=== PATIENT | male | born 1955 | race American Indian/Alaskan Native ===

== ENCOUNTER 2019-11-24 14:45 | Emergency (ER) | payer SELFPAY ==
--- NOTE | 2019-11-24 16:29 | Emergency Department Report ---
Chief Complaint: Upper Respiratory Infection Stated Complaint: CHEST TIGHTNESS, HEADACHCE Time Seen by Provider: 11/24/19 16:26 - HPI History of Present Illness: 64 y.o. M. that presents to the ER with chills, cough, and chest discomfort for 1 week. Reports night sweats and productive cough. Nonsmoker Taking meds with no change in symptoms. Denies recent travel, n/v/d, weakness, palpitations. MSE screening note: Focused history and physical exam performed. Due to findings the following was ordered: CXR ED Disposition for MSE Condition: Stable
--- NOTE | 2019-11-24 17:06 | XRay Report ---
CHEST 2 VIEWS INDICATION: coug and chest discomfort. COMPARISON: Chest x-ray from 01/28/2014 FINDINGS: Support devices: None. Heart: Within normal limits. Lungs/pleura: No acute air space or interstitial disease. No pneumothorax. Additional findings: None. IMPRESSION: 1. No acute findings. Signer Name: Olaf Muniz MD Signed: 11/24/2019 5:02 PM Workstation Name: [id number]
--- NOTE | 2019-11-24 19:14 | Emergency Department Report ---
HPI - General Chief Complaint: Upper Respiratory Infection Time Seen by Provider: 11/24/19 16:26 - HPI HPI: Room 43 The patient is a 64-year-old male present with a chief complaint of cough and congestion. The patient states for 1 week he has had a cough occasionally productive of white sputum, had a headache and fatigue. Patient is occasional rhinorrhea. Patient states he had a fever 102 F. Patient has no known sick contacts. ED Past Medical Hx - Past Medical History Previous Medical History?: Yes Hx Hypertension: Yes (not requiring meds at this time, used to take lisinopril) Hx Diabetes: Yes Additional medical history: gastric ulcer , no trouble since , no trouble with NSAIDs - Surgical History Past Surgical History?: Yes Additional Surgical History: 1/3 of stomach removed in - Family History Family history: no significant - Social History Smoking Status: Never Smoker Substance Use Type: None (Denies illicit drug use) - Medications Home Medications: Home Medications Medication Instructions Recorded Confirmed Last Taken Type HYDROcodone/APAP 5-325 [[place] 1 each PO Q6HR PRN #20 tablet 03/02/15 Unknown Rx 5/325] Ibuprofen [Motrin] 600 mg PO Q8H PRN #50 tablet 03/02/15 Unknown Rx metFORMIN [Glucophage] 500 mg PO BID 03/02/15 03/02/15 Unknown History Albuterol INH(or & Nicu Only) 2 puff IH QID PRN #8.5 gram 11/24/19 Unknown Rx [ProAir HFA Inhaler] Benzonatate [Tessalon Perles] 100 mg PO Q8HR #30 capsule 11/24/19 Unknown Rx Ciprofloxacin HCl [Ciprofloxacin 500 mg PO Q12HR #20 tab 11/24/19 Unknown Rx TAB] HYDROcodone/APAP 5-325 [[place] 1 - 2 each PO Q6HR PRN #7 tablet 11/24/19 Unknown Rx 5/325] Ibuprofen [Motrin 800 MG tab] 800 mg PO Q8HR PRN #20 tablet 11/24/19 Unknown Rx Oxymetazoline 0.05% [Vicks Sinex] 1 spray NS Q12H PRN #1 bottle 11/24/19 Unknown Rx ED Review of Systems ROS: Stated complaint: CHEST TIGHTNESS, HEADACHCE Other details as noted in HPI Constitutional: fever Eyes: denies: eye pain ENT: congestion Respiratory: cough Endocrine: no symptoms reported Gastrointestinal: denies: abdominal pain Musculoskeletal: myalgia Neurological: headache Physical Exam - Physical Exam Vital Signs: Vital Signs 11/24/19 16:26 Temperature 97.4 F L Pulse Rate 79 Respiratory 18 Rate Blood Pressure 125/90 O2 Sat by Pulse 96 Oximetry Physical Exam: GENERAL: The patient is well-developed well-nourished []. [] HEENT: Normocephalic. Atraumatic. Extraocular motions are intact. Patient has moist mucous membranes. NECK: Supple. Trachea midline CHEST/LUNGS: Clear to auscultation. There is no respiratory distress noted. HEART/CARDIOVASCULAR: Regular. There is no tachycardia. There is no gallop rub or murmur. ABDOMEN: Abdomen is soft, nontender. Patient has normal bowel sounds. There is no abdominal distention. SKIN: There is no rash. There is no edema. There is no diaphoresis. NEURO: The patient is awake, alert, and oriented. The patient is cooperative. The patient has no focal neurologic deficits. The patient has normal speech MUSCULOSKELETAL: There is no evidence of acute injury. ED Course Vital Signs 11/24/19 16:26 Temperature 97.4 F L Pulse Rate 79 Respiratory 18 Rate Blood Pressure 125/90 O2 Sat by Pulse 96 Oximetry ED Medical Decision Making - Lab Data Laboratory Tests 11/24/19 Unknown Influenza A (Rapid) Negative Influenza B (Rapid) Negative - Radiology Data Radiology results: report reviewed (Chest x-ray), image reviewed (Chest x-ray) interpreted by me: Chest x-ray-no focal infiltrates, no pneumothorax [facility] [address] [place] [address] XRay Report Signed Patient: ОЛЕГ HARRIS MR#: [id number] : [birth year] Acct:[id number] Age/Sex: 64 / M ADM Date: 11/24/19 Loc: ED Attending Dr: Ordering Physician: IRA NELSON Date of Service: 11/24/19 Procedure(s): XR chest routine 2V Accession Number(s): [id number] cc: IRA NELSON Fluoro Time In Minutes: CHEST 2 VIEWS INDICATION: coug and chest discomfort. COMPARISON: Chest x-ray from 01/28/2014 FINDINGS: Support devices: None. Heart: Within normal limits. Lungs/pleura: No acute air space or interstitial disease. No pneumothorax. Additional findings: None. IMPRESSION: 1. No acute findings. Signer Name: Olaf Muniz MD Signed: 11/24/2019 5:02 PM Workstation Name: [id number] Transcribed By: EMILY Dictated By: Olaf Muniz MD Electronically Authenticated By: Olaf Muniz MD Signed Date/Time: 11/24/191701 DD/ 99 TD/TT: - Differential Diagnosis Influenza, bronchitis, pneumonia Critical care attestation.: If time is entered above; I have spent that time in minutes in the direct care of this critically ill patient, excluding procedure time. ED Disposition Clinical Impression: Acute bronchitis Disposition: - TO HOME OR SELFCARE Is pt being admited?: No Does the pt Need Aspirin: No Condition: Stable Instructions: Acute Bronchitis (ED) Prescriptions: Ciprofloxacin HCl [Ciprofloxacin TAB] 500 mg PO Q12HR #20 tab Ibuprofen [Motrin 800 MG tab] 800 mg PO Q8HR PRN #20 tablet PRN Reason: Pain, Moderate (4-6) HYDROcodone/APAP 5-325 [[place] 5/325] 1 - 2 each PO Q6HR PRN #7 tablet PRN Reason: Pain Albuterol INH(or & Nicu Only) [ProAir HFA Inhaler] 2 puff IH QID PRN #8.5 gram PRN Reason: Shortness Of Breath Benzonatate [Tessalon Perles] 100 mg PO Q8HR #30 capsule Oxymetazoline 0.05% [Vicks Sinex] 1 spray NS Q12H PRN #1 bottle PRN Reason: Nasal Congestion Referrals: PRIMARY CARE, [Primary Care Provider] - 3-5 Days [facility] [Outside] - 3-5 Days Time of Disposition: 19:23
[2019-11-24] MEDS ORDERED: IBUPROFEN 800 MG TAB PO ONE (19:24)
[2019-11-24 19:38] VITALS: BP 154/79
== END 2019-11-24 19:38 | disposition home or self-care (01) ==
LOC: ED 14:45
DX: J20.9 Acute bronchitis, unspecified (principal); I10 Essential (primary) hypertension; E11.9 Type 2 diabetes mellitus without complications
CPT/HCPCS: 71046; 87400; 99284

== ENCOUNTER 2020-05-08 14:18 | Emergency (ER) | payer SELFPAY ==
[2020-05-08] MEDS ORDERED: SODIUM CHLORIDE 0.9% 1000 ML 1,000 ML ONE (15:07)
[2020-05-08] MEDS ORDERED: ASPIRIN 81 MG TAB CHEW PO ONE (15:11)
[2020-05-08] MEDS ORDERED: SODIUM CHLORIDE 0.9% 1000 ML 1,000 ML IV ONE ×2 (15:11→17:44)
--- NOTE | 2020-05-08 15:32 | Emergency Department Report ---
ED Chest Pain HPI - General Stated Complaint: DEHYDRATED/DIFFICULTY BREATHING Time Seen by Provider: 05/08/20 14:57 - History of Present Illness Initial Comments: Patient is 64 years old male with history of hypertension and diabetes. Patient brought to the emergency room via EMS from a local [facility] after patient found in the parking lot asking for help because of generalized weakness and chest pain. Patient stated that his symptoms started 2 days ago but worse today. Patient describes his chest pain as sharp with no radiation. Patient admitted that he has not been drinking fluids well. Patient looks very dehydrated with a blood pressure initially of 90/42. Patient denied any loss of consciousness or focal weakness numbness or tingling sensation. No bowel or bladder incontinence. Patient also denied any headache. Patient denied any fever, chills, runny nose cough or congestion. MD Complaint: chest pain -: This morning Onset: during rest Pain Location: left chest Pain Radiation: none Quality: aching, sharp - Related Data Home Medications Medication Instructions Recorded Confirmed Last Taken metFORMIN [Glucophage] 500 mg PO BID 03/02/15 03/02/15 Unknown Previous Rx's Medication Instructions Recorded Last Taken Type HYDROcodone/APAP 5-325 [[place] 1 each PO Q6HR PRN #20 tablet 03/02/15 Unknown Rx 5/325] Ibuprofen [Motrin] 600 mg PO Q8H PRN #50 tablet 03/02/15 Unknown Rx Albuterol Mdi (or & Nicu Only) 2 puff IH QID PRN #8.5 gram 11/24/19 Unknown Rx [ProAir HFA Inhaler] Benzonatate [Tessalon Perles] 100 mg PO Q8HR #30 capsule 11/24/19 Unknown Rx Ciprofloxacin HCl [Ciprofloxacin 500 mg PO Q12HR #20 tab 11/24/19 Unknown Rx TAB] HYDROcodone/APAP 5-325 [[place] 1 - 2 each PO Q6HR PRN #7 tablet 11/24/19 Unknown Rx 5/325] Ibuprofen [Motrin 800 MG tab] 800 mg PO Q8HR PRN #20 tablet 11/24/19 Unknown Rx Oxymetazoline 0.05% [Vicks Sinex] 1 spray NS Q12H PRN #1 bottle 11/24/19 Unknown Rx Allergies Allergy/AdvReac Type Severity Reaction Status Date / Time No Known Allergies Allergy Unverified 10/22/13 09:00 Heart Score - HEART Score History: Slightly suspicious EKG: Non-specific Age: 45-65 Risk factors: 1-2 risk factors Troponin: < normal limit HEART Score: 3 - Critical Actions Critical Actions: 4-6 pts:12-16.6% risk of adverse cardiac event. Should be admitted ED Review of Systems ROS: Stated complaint: DEHYDRATED/DIFFICULTY BREATHING Other details as noted in HPI Comment: All other systems reviewed and negative Constitutional: denies: chills, fever Respiratory: denies: cough, shortness of breath, SOB with exertion, SOB at rest, wheezing Cardiovascular: chest pain. denies: palpitations, dyspnea on exertion Gastrointestinal: denies: abdominal pain, nausea, vomiting, diarrhea, constipation, hematemesis, melena, hematochezia Musculoskeletal: denies: back pain Neurological: denies: headache, weakness, numbness, paresthesias, confusion, abnormal gait ED Past Medical Hx - Past Medical History Hx Hypertension: Yes (not requiring meds at this time, used to take lisinopril) Hx Diabetes: Yes Additional medical history: gastric ulcer , no trouble since , no trouble with NSAIDs - Surgical History Additional Surgical History: 1/3 of stomach removed in - Social History Smoking Status: Never Smoker Substance Use Type: None (Denies illicit drug use) - Medications Home Medications: Home Medications Medication Instructions Recorded Confirmed Last Taken Type HYDROcodone/APAP 5-325 [[place] 1 each PO Q6HR PRN #20 tablet 03/02/15 Unknown Rx 5/325] Ibuprofen [Motrin] 600 mg PO Q8H PRN #50 tablet 03/02/15 Unknown Rx metFORMIN [Glucophage] 500 mg PO BID 03/02/15 03/02/15 Unknown History Albuterol Mdi (or & Nicu Only) 2 puff IH QID PRN #8.5 gram 11/24/19 Unknown Rx [ProAir HFA Inhaler] Benzonatate [Tessalon Perles] 100 mg PO Q8HR #30 capsule 11/24/19 Unknown Rx Ciprofloxacin HCl [Ciprofloxacin 500 mg PO Q12HR #20 tab 11/24/19 Unknown Rx TAB] HYDROcodone/APAP 5-325 [[place] 1 - 2 each PO Q6HR PRN #7 tablet 11/24/19 Unknown Rx 5/325] Ibuprofen [Motrin 800 MG tab] 800 mg PO Q8HR PRN #20 tablet 11/24/19 Unknown Rx Oxymetazoline 0.05% [Vicks Sinex] 1 spray NS Q12H PRN #1 bottle 11/24/19 Unknown Rx ED Physical Exam - General General appearance: alert, in no apparent distress - Head Head exam: Present: atraumatic, normocephalic, normal inspection - ENT ENT exam: Present: mucous membranes dry - Neck Neck exam: Present: normal inspection, full ROM. Absent: tenderness, meningismus, lymphadenopathy, thyromegaly - Respiratory Respiratory exam: Present: normal lung sounds bilaterally. Absent: respiratory distress, wheezes, rales, rhonchi, chest wall tenderness, accessory muscle use, decreased breath sounds, prolonged expiratory - Cardiovascular Cardiovascular Exam: Present: regular rate, normal rhythm, normal heart sounds - GI/Abdominal GI/Abdominal exam: Present: soft, normal bowel sounds. Absent: distended, tenderness, guarding, rebound, rigid, organomegaly, mass, bruit, pulsatile mass, hernia - Extremities Exam Extremities exam: Present: normal inspection, full ROM, normal capillary refill. Absent: pedal edema, calf tenderness - Back Exam Back exam: Present: normal inspection, full ROM. Absent: CVA tenderness (R), CVA tenderness (L), muscle spasm, paraspinal tenderness, vertebral tenderness - Neurological Exam Neurological exam: Present: alert, oriented X3, CN II-XII intact, normal gait, reflexes normal. Absent: motor sensory deficit - Psychiatric Psychiatric exam: Present: normal mood - Skin Skin exam: Present: warm, intact, normal color ED Course Vital Signs 05/08/20 05/08/20 05/08/20 14:38 14:53 14:57 Temperature 97.6 F Pulse Rate 80 82 Respiratory 18 19 16 Rate Blood Pressure 140/82 Blood Pressure 91/52 [Right] O2 Sat by Pulse 97 94 Oximetry 05/08/20 05/08/20 05/08/20 15:00 15:15 15:30 Temperature Pulse Rate 81 73 69 Respiratory 18 13 25 H Rate Blood Pressure 91/58 89/54 100/60 Blood Pressure [Right] O2 Sat by Pulse 97 Oximetry 05/08/20 05/08/20 05/08/20 15:45 16:00 16:15 Temperature Pulse Rate 71 72 73 Respiratory 19 26 H 22 Rate Blood Pressure 110/68 113/74 119/73 Blood Pressure [Right] O2 Sat by Pulse 98 99 98 Oximetry 05/08/20 05/08/20 05/08/20 16:31 16:45 17:00 Temperature Pulse Rate 81 88 88 Respiratory 14 21 26 H Rate Blood Pressure 119/73 115/69 109/61 Blood Pressure [Right] O2 Sat by Pulse 98 96 97 Oximetry 05/08/20 18:51 Temperature Pulse Rate 84 Respiratory 18 Rate Blood Pressure Blood Pressure 148/86 [Right] O2 Sat by Pulse 98 Oximetry TENA score - Tena Score Age > 65: (0) No Aspirin use within the Past 7 Days: (0) No 3 or more CAD Risk Factors: (0) No 2 or more Angina events in past 24 hrs: (0) No Known CAD with more than 50% Stenosis: (0) No Elevated Cardiac Markers: (0) No ST Deviation Greater than 0.5mm: (0) No TENA Score: 0 ED Medical Decision Making - Lab Data Result diagrams: 05/08/20 15:28 05/08/20 15:28 - EKG Data -: EKG Interpreted by Ia EKG shows normal: sinus rhythm Rate: normal - EKG Data Interpretation: no acute changes - Radiology Data Radiology results: report reviewed - Medical Decision Making Patient is 64 years old male with history of hypertension and diabetes. Patient brought to the emergency room via EMS from a local [facility] after patient found in the parking lot asking for help because of generalized weakness and chest pain. Patient stated that his symptoms started 2 days ago but worse today. Patient admitted that he has not been drinking fluids well. Patient looks very dehydrated with a blood pressure initially of 90/42. Patient denied any loss of consciousness or focal weakness numbness or tingling sensation. No bowel or bladder incontinence. Patient also denied any headache. Patient den ied any fever, chills, runny nose cough or congestion. EKG showed a sinus rhythm with no ST elevation. Chest x-ray is unremarkable. Patient received 2 L of normal saline with significant improvement in his blood pressure. Patient stated that he is feeling much better. Labs reviewed and is unremarkable including 2 sets of troponin. Patient advised to follow-up with his primary care physician in the next 2 to 3 days and to return to the ER if he develop any new symptoms. Critical care attestation.: If time is entered above; I have spent that time in minutes in the direct care of this critically ill patient, excluding procedure time. ED Disposition Clinical Impression: Chest pain, Dehydration Disposition: DC-01 TO HOME OR SELFCARE Is pt being admited?: No Condition: Stable Instructions: Chest Pain (ED) Referrals: PRIMARY CARE, [Primary Care Provider] - 3-5 Days
--- NOTE | 2020-05-08 15:52 | XRay Report ---
CHEST 1 VIEW 05/08/2020 3:14 PM INDICATION / CLINICAL INFORMATION: Chest Pain. COMPARISON: 11/24/2019 FINDINGS: SUPPORT DEVICES: None. HEART / MEDIASTINUM: No significant abnormality. LUNGS / PLEURA: No significant pulmonary or pleural abnormality. No pneumothorax. ADDITIONAL FINDINGS: No significant additional findings. IMPRESSION: 1. No acute findings. Signer Name: Tomi Duke MD Signed: 05/08/2020 3:48 PM Workstation Name: [id number]
[2020-05-08 17:09] LABS: Basophils # (Auto) 0.1 K/mm3 (0.0-0.1); Basophils % (Auto) 0.8 % (0.0-1.8); Eosinophils # (Auto) 0.1 K/mm3 (0.0-0.4); Eosinophils % (Auto) 1.2 % (0.0-4.3); Hematocrit 44.7 % (35.5-45.6); Hemoglobin 15.1 gm/dl (11.8-15.2); Lymphocytes # (Auto) 1.6 K/mm3 (1.2-5.4); Lymphocytes % (Auto) 21.2 % (13.4-35.0); Mean Corpuscular HGB Conc 34 % (32-34); Mean Corpuscular Volume 97 fl (84-94); Monocytes # (Auto) 0.7 K/mm3 (0.0-0.8); Monocytes % (Auto) 9.2 % (0.0-7.3); Platelet Count 200 K/mm3 (140-440); Red Blood Count 4.62 M/mm3 (3.65-5.03); Red Cell Distribution Width 13.8 % (13.2-15.2)
[2020-05-08 17:26] LABS: BUN/Creatinine Ratio 9; Blood Urea Nitrogen 14 mg/dL (9-20); Calcium 8.7 mg/dL (8.4-10.2); Hemolysis Index 17
[2020-05-08 17:33] LABS: Partial Thromboplastin Time 23.5 Sec. (24.2-36.6)
[2020-05-08 17:34] LABS: Albumin 3.6 g/dL (3.9-5); Bilirubin,Direct 0.2 mg/dL (0-0.2)
[2020-05-08 18:54] VITALS: BP 148/86
== END 2020-05-08 19:45 | disposition home or self-care (01) ==
LOC: ED 14:18
DX: R07.89 Other chest pain (principal); E86.0 Dehydration; I10 Essential (primary) hypertension; E11.9 Type 2 diabetes mellitus without complications; Z79.899 Other long term (current) drug therapy
CPT/HCPCS: 36415; 71045; 80048; 80076; 82550; 83690; 83880; 84484; 85025; 85379; 85610; 85730; 93005; 96360; 96361; 99284; J7030

== ENCOUNTER 2021-07-27 02:23 | Emergency (ER) | payer SELFPAY ==
[2021-07-27] MEDS ORDERED: ASPIRIN 81 MG TAB CHEW PO ONE (02:30)
[2021-07-27] MEDS ORDERED: NITROGLYCERIN 0.4 MG TAB SUBL SL PRN (02:30)
--- NOTE | 2021-07-27 02:34 | Emergency Department Report ---
ED General Adult HPI - General Stated complaint: DEEPAK,CHEST PAIN Time Seen by Provider: 07/27/21 02:30 - History of Present Illness Initial comments: Patient presents by ambulance secondary to chest pain. He was waiting on a ride. His ride did not show up. Subsequent to that, he started walking. He then developed a left-sided chest pain and precordial chest pain described as a heaviness. He was short of breath associate with this. Because of this, EMS was called. He was transported here for further evaluation and treatment. Patient states that he had similar symptoms about a year ago. He was seen here and he states that we told him everything was fine. A couple of months after being here, he had another episode. He was admitted at [facility]. He underwent cardiac cath. He was told that he had "blockage" but no stent was placed. He was told that he needed to control his blood sugar and that would control his heart disease. Patient admits that he has not been completely compliant with his Metformin. Regardless, tonight he had these episodes of chest pain and he decided to come here. Patient states that he is still having pain upon arrival here. The pain does not radiate or migrate. - Related Data Home Medications Medication Instructions Recorded Confirmed Last Taken metFORMIN [Glucophage] 500 mg PO BID 03/02/15 03/02/15 Unknown Previous Rx's Medication Instructions Recorded Last Taken Type HYDROcodone/APAP 5-325 [[place] 1 each PO Q6HR PRN #20 tablet 03/02/15 Unknown Rx 5/325] Ibuprofen [Motrin] 600 mg PO Q8H PRN #50 tablet 03/02/15 Unknown Rx Albuterol Mdi (or & Nicu Only) 2 puff IH QID PRN #8.5 gram 11/24/19 Unknown Rx [ProAir HFA Inhaler] Benzonatate [Tessalon Perles] 100 mg PO Q8HR #30 capsule 11/24/19 Unknown Rx Ciprofloxacin HCl [Ciprofloxacin 500 mg PO Q12HR #20 tab 11/24/19 Unknown Rx TAB] HYDROcodone/APAP 5-325 [[place] 1 - 2 each PO Q6HR PRN #7 tablet 11/24/19 Unknown Rx 5/325] Ibuprofen [Motrin 800 MG tab] 800 mg PO Q8HR PRN #20 tablet 11/24/19 Unknown Rx Oxymetazoline 0.05% [Vicks Sinex] 1 spray NS Q12H PRN #1 bottle 11/24/19 Unknown Rx Ondansetron [Zofran Odt] 4 mg PO Q8HR PRN #14 tab.rapdis 05/08/20 Unknown Rx Allergies Allergy/AdvReac Type Severity Reaction Status Date / Time No Known Allergies Allergy Verified 07/27/21 02:34 ED Review of Systems ROS: Stated complaint: DEEPAK,CHEST PAIN Other details as noted in HPI Comment: All other systems reviewed and negative Constitutional: denies: fever Eyes: denies: vision change Respiratory: denies: cough Cardiovascular: as per HPI Endocrine: denies: unexplained weight loss Gastrointestinal: denies: abdominal pain Genitourinary: denies: dysuria Musculoskeletal: denies: back pain Skin: denies: rash Neurological: denies: headache Hematological/Lymphatic: denies: easy bruising ED Past Medical Hx - Past Medical History Hx Hypertension: Yes (not requiring meds at this time, used to take lisinopril) Hx Diabetes: Yes Additional medical history: gastric ulcer , no trouble since , no trouble with NSAIDs - Surgical History Additional Surgical History: 1/3 of stomach removed in - Family History Family history: hypertension - Social History Smoking Status: Never Smoker Substance Use Type: None (Denies illicit drug use) - Medications Home Medications: Home Medications Medication Instructions Recorded Confirmed Last Taken Type HYDROcodone/APAP 5-325 [[place] 1 each PO Q6HR PRN #20 tablet 03/02/15 Unknown Rx 5/325] Ibuprofen [Motrin] 600 mg PO Q8H PRN #50 tablet 03/02/15 Unknown Rx metFORMIN [Glucophage] 500 mg PO BID 03/02/15 03/02/15 Unknown History Albuterol Mdi (or & Nicu Only) 2 puff IH QID PRN #8.5 gram 11/24/19 Unknown Rx [ProAir HFA Inhaler] Benzonatate [Tessalon Perles] 100 mg PO Q8HR #30 capsule 11/24/19 Unknown Rx Ciprofloxacin HCl [Ciprofloxacin 500 mg PO Q12HR #20 tab 11/24/19 Unknown Rx TAB] HYDROcodone/APAP 5-325 [[place] 1 - 2 each PO Q6HR PRN #7 tablet 11/24/19 Unknown Rx 5/325] Ibuprofen [Motrin 800 MG tab] 800 mg PO Q8HR PRN #20 tablet 11/24/19 Unknown Rx Oxymetazoline 0.05% [Vicks Sinex] 1 spray NS Q12H PRN #1 bottle 11/24/19 Unknown Rx Ondansetron [Zofran Odt] 4 mg PO Q8HR PRN #14 tab.rapdis 05/08/20 Unknown Rx ED Physical Exam - General Limitations: No Limitations, Other (Pulse ox noted and normal) General appearance: alert, in no apparent distress - Head Head exam: Present: atraumatic, normocephalic - Eye Eye exam: Present: normal appearance, EOMI. Absent: scleral icterus - ENT ENT exam: Present: normal exam, normal orophraynx, normal external ear exam - Neck Neck exam: Present: normal inspection. Absent: meningismus - Respiratory Respiratory exam: Present: normal lung sounds bilaterally. Absent: respiratory distress - Cardiovascular Cardiovascular Exam: Present: regular rate, normal rhythm - GI/Abdominal GI/Abdominal exam: Present: soft. Absent: tenderness - Extremities Exam Extremities exam: Present: normal capillary refill. Absent: pedal edema - Back Exam Back exam: Absent: CVA tenderness (R), CVA tenderness (L) - Neurological Exam Neurological exam: Present: alert, oriented X3, CN II-XII intact, normal gait. Absent: motor sensory deficit - Psychiatric Psychiatric exam: Present: normal mood, anxious - Skin Skin exam: Present: warm, dry ED Course Vital Signs 07/27/21 02:32 Temperature 98.0 F Pulse Rate 78 Respiratory 17 Rate Blood Pressure 110/79 [Left] O2 Sat by Pulse 100 Oximetry - Reevaluation(s) Reevaluation #1: 07/27/21 02:34 EMS was met upon arrival. IV and labs were ordered. EKG was ordered. Old records reviewed. Reevaluation #2: 07/27/21 03:36 Chest x-ray was noted. Chemistries are pending. Reevaluation #3: 07/27/21 04:00 Labs have been noted. There is no evidence of STEMI or NSTEMI. Patient does not have EKG changes. There is no other acute pathology. He is resting comfortably at this time. Labs have been discussed with him. ED Medical Decision Making - Lab Data Result diagrams: 07/27/21 03:00 07/27/21 03:00 Rhythm strip: Normal sinus rhythm without ectopy per monitor observe 10 seconds. - Medical Decision Making Patient presented with chest pain. He reportedly had history of heart disease. This cannot be verified at this time. He has no evidence of STEMI. There is no evidence of NSTEMI. He clinically does not have pneumonia or pneumothorax. There is no pulse deficit that would suggest aortic dissection. There is no recent immobility to suggest PE. Critical Care Time: No Critical care attestation.: If time is entered above; I have spent that time in minutes in the direct care of this critically ill patient, excluding procedure time. ED Disposition Clinical Impression: Precordial chest pain, Shortness of breath Disposition: HOME / SELF CARE / HOMELESS Is pt being admited?: No Condition: Stable Instructions: Nonspecific Chest Pain, Adult, Shortness of Breath, Adult Additional Instructions: Continue home medication. Drink plenty water. Return for problems. Follow-up with your regular doctor for recheck. If you do not have a regular doctor, follow-up with the referral physician. Referrals: PRIMARY MD [facility] [Referring] - 3-5 Days MIRZA OCHOA MD [Staff Physician] - 3-5 Days
--- NOTE | 2021-07-27 03:02 | XRay Report ---
CHEST 2 VIEWS INDICATION / CLINICAL INFORMATION: chest pain. COMPARISON: 05/08/20 FINDINGS: SUPPORT DEVICES: None. HEART / MEDIASTINUM: No significant abnormality. LUNGS / PLEURA: No significant pulmonary or pleural abnormality. No pneumothorax. ADDITIONAL FINDINGS: No significant additional findings. IMPRESSION: 1. No acute findings. No significant change. Signer Name: Roman March MD Signed: 07/27/2021 2:58 AM Workstation Name: [id number]
[2021-07-27 03:18] LABS: Hematocrit 44.9 % (35.5-45.6); Hemoglobin 15.6 gm/dl (11.8-15.2); Mean Corpuscular HGB Conc 35 % (32-34); Mean Corpuscular Volume 97 fl (84-94); Platelet Count 185 K/mm3 (140-440); Red Blood Count 4.61 M/mm3 (3.65-5.03); Red Cell Distribution Width 13.7 % (13.2-15.2)
[2021-07-27 03:31] LABS: BUN/Creatinine Ratio 19; Blood Urea Nitrogen 21 mg/dL (9-20); Calcium 9.3 mg/dL (8.4-10.2); Hemolysis Index 95
[2021-07-27 06:21] VITALS: BP 118/79
--- NOTE | 2021-07-27 11:47 | Electrocardiograph Report ---
[facility] Test Date: 2021-07-27 Test Time: 02:37:39 Pat Name: ОЛЕГ HARRIS Department: Room: Gender: M Process Checker: : 1955 Requested By: MARTHA SMITH Order Number: [id number] Reading MD: Jax Olea Measurements Intervals [place] Rate: 84 P: 50 SD: 164 QRS: 36 QRSD: 76 T: 93 QT: 390 QTc: 461 Interpretive Statements Sinus rhythm Nonspecific T abnormalities, lateral leads No previous ECG available for comparison Electronically Signed On 07-27-2021 11:47:52 EST by Jax Olea
== END 2021-07-27 06:25 | disposition home or self-care (01) ==
LOC: ED 02:23
DX: R07.2 Precordial pain (principal); R06.02 Shortness of breath; I10 Essential (primary) hypertension; E11.9 Type 2 diabetes mellitus without complications; Z98.890 Other specified postprocedural states; Z79.899 Other long term (current) drug therapy
CPT/HCPCS: 36415; 71046; 80048; 84484; 85027; 93005; 99284